=== PATIENT | female | born 1955 | race Caucasian/White ===

== ENCOUNTER 2025-07-09 06:20 | Day surgery (SDC) | payer MEDICARE, SELFPAY ==
[2025-07-09] VITALS (19 sets, daily range): BP systolic 118–190; BP diastolic 59–91; PULSE 53–73; RESP 11–19; TEMP 36.2–36.6; O2SAT 94–98; BMI 34.6
--- NOTE | 2025-07-09 06:48 | W.ANESPRE ---
General Info Date of Service Date Performed: 07/09/25 Height: 5 ft 2 in Weight: 85.9 kg Body Mass Index (BMI): 34.6 Surgical Procedure: Operation Date: 07/09/25 07:40 Proposed Procedure Side Surgeon p Cystoscopy/Laser/Retrograde/Ureteroscopy Rasheed Hernandez MD Meds Allergies and Home Medications Allergies Allergy/AdvReac Type Severity Reaction Status Date / Time No Known Allergies Allergy Verified 07/09/25 06:45 Home Medication ?Medication ?Instructions ?Recorded ascorbic acid (vitamin C) 1,000 mg See Rx Instructions PO .COMPLEX 06/29/22 capsule cholecalciferol (vitamin D3) 25 25 mcg PO DAILY 06/29/22 mcg (1,000 unit) capsule cyanocobalamin (vitamin B-12) 50 50 mcg PO DAILY 06/29/22 mcg lozenges fluticasone propionate 50 1 spray intranasal DAILY PRN 06/29/22 mcg/actuation nasal spray,suspension loratadine 10 mg tablet (Allergy 10 mg PO DAILY PRN allergic 06/29/22 Relief (loratadine)) symptoms rosuvastatin 10 mg tablet (Crestor) 10 mg PO DAILY 06/29/22 solifenacin 10 mg tablet (Vesicare) 10 mg PO DAILY 06/29/22 albuterol 90 mcg/actuation aerosol mcg inhalation 07/06/25 inhaler hydromorphone 2 mg tablet 2 mg PO Q4H 07/06/25 levalbuterol tartrate 45 2 inh inhalation Q6H 07/06/25 mcg/actuation aerosol inhaler losartan 25 mg tablet 12.5 mg PO DAILY 07/06/25 meloxicam 15 mg tablet 15 mg PO DAILY 07/06/25 mirabegron 25 mg tablet,extended 25 mg PO DAILY 07/06/25 release 24 hr (Myrbetriq) ondansetron 4 mg disintegrating 4 mg PO Q8H 07/06/25 tablet tamsulosin 0.4 mg capsule 0.4 mg PO DAILY 07/06/25 Current Visit Medications: Current Medications Generic Name Dose Route Start Last Admin Trade Name Freq PRN Reason Stop Dose Admin Ringer's Solution 1,000 mls @ 80 mls/hr 07/09/25 06:23 IV 08/08/25 06:22 INFUSION EUGENE Levofloxacin 500 mg 07/09/25 06:24 Levofloxacin 500 Mg Tab PO 08/08/25 06:23 PREOP EUGENE Sodium Chloride 0 ml 07/09/25 06:23 Normal Saline Flush 10 Ml Syr IVP 08/08/25 06:22 PRN PRN Sodium Chloride 0 ml 07/09/25 08:30 Normal Saline Flush 10 Ml Syr IVP 08/08/25 08:29 BID EUGENE Sodium Chloride 0 ml 07/09/25 06:23 Normal Saline 10 Ml Vial IJ 08/08/25 06:22 DIRECTED PRN PFSH Active Problems Active Problems: Problem Status Onset Code Overactive bladder Acute N32.81 Left ureteral stone Acute N20.1 Hypertension Chronic I10 Pain, foot Acute M79.673 Plantar fasciitis of right foot Acute M72.2 Hypercholesterolemia Acute E78.00 Medical History Medical History (Updated 07/06/25 @ 15:44 by Rasheed Hernandez MD) Cervical lymphadenopathy Ingrown nail Urinary urgency Surgical History Surgical History (Updated 06/29/22 @ 08:25 by Alicia Michelle RN) History of bunionectomy of right great toe History of tubal ligation History of appendectomy Tobacco Smoking/Tobacco Use Status: Former Tobacco Use Vital Signs and Lab Results Vital Signs Most Recent Vital Signs in EMR: Temp Pulse Resp BP Pulse Ox 36.2 C L 73 16 190/91 H 96 07/09/25 06:50 07/09/25 06:50 07/09/25 06:50 07/09/25 06:50 07/09/25 06:50 Anesthesia Assessment and Plan Anesthesia History Personal History: No History of Anesthesia Complications Family History: No Family History of Anesthesia Complications Exercise Tolerance Exercise Tolerance: Metabolic Equivalents>4 Cardiac & Pulmonary Exam Cardiac Exam: Normal S1/S2 Heart Sounds Pulmonary Exam: Clear Bilateral Breath Sounds Implantable Cardiac Device Does patient have a Pacemaker or an ICD?: No Airway Exam Known Difficult Airway: No Mallampati Class: 4 Mouth Opening: Normal (> 3cm) Thyromental Distance: Greater than 3 cm Neck Range of Motion: Full ROM and Limited ROM Neck Circumference: Normal Teeth Condition: Removable Dentures/Plates Upper, Removable Dentures/Plates Lower and Edentulous ASA Classification ASA Score: ASA 2 Emergency Case?: No NPO Status NPO Status: NPO Clears >2 hours, Solids >8 hours Anesthesia Plan Resuscitation Status: Full Code Anesthesia Technique: General Anesthesia Airway Planned: Endotracheal Tube Monitors Used: Standard Monitors Preoperative Comments:: 70 yo for cysto. Sig PMHx: HTN (losartan, did not take today. Usually 140/80 at home), RAD (levalbut - last dose yesterday.), former smoker. GERD multiple times a week, HOB elevated at home.
--- NOTE | 2025-07-09 07:05 | W.PM.HP.N ---
Date of service: 07/09/25 Time of Service: 07:21 Assessment and Plan Assessment and plan (1) Left ureteral stone: Status: Acute Assessment and plan: Her stone has not progressed or passed, so we will move forward with a cystoscopy, left retrograde pyelogram, left ureteroscopy with possible holmium laser lithotripsy of her stone. History of Present Illness History of Present Illness Chief Complaint: Left ureteral stone Narrative: This is a 70-year-old woman who recently presented to an outlying emergency department with a left upper abdominal pain. She was having nausea at the time but no vomiting. As part of her evaluation, she was found to have microscopic hematuria. CT scan was done and an obstructing left proximal ureteral stone was identified. She was discharged with oral analgesics and Flomax. She has not passed her stone in the past 4 to 5 days. She is not having fevers or chills. Her pain has been controlled with NSAIDs. She continues to have nausea but no vomiting. This is her first stone episode. She has no history of gout or hyperparathyroidism. She recalls that one of her brothers had kidney stones. She has had no adverse reactions to anesthetic in the past. She has no issues with excessive bleeding or delayed wound healing. She quit smoking back up to 2006. Review of Systems Narrative: No fevers or chills No vision change or dysphasia No diabetes or thyroid dysfunction Asthma - uses inhaler prn. No hemoptysis No chest pain or palpitations No vomiting, hepatitis, ulcers, jaundice, diarrhea or constipation No seizures, strokes or peripheral neuropathy No bleeding disorders or anemia No gout PFSH All Active Problems Overactive bladder (Acute) Left ureteral stone (Acute) Hypertension (Chronic) Pain, foot (Acute) Plantar fasciitis of right foot (Acute) Hypercholesterolemia (Acute) Medical History Cervical lymphadenopathy Ingrown nail Urinary urgency Surgical History History of bunionectomy of right great toe History of tubal ligation History of appendectomy Social History (Updated 06/29/22 @ 08:23 by Alicia Michelle RN) Smoking/Tobacco Use Status: Former Tobacco Use Quit Date: 07/12/09 Smoking risk assessment performed?: Yes Alcohol Intake: never Substance use type: does not use Household members: spouse Number of Children: 3 current occupation: retired Do you feel safe at home: Yes Do you feel safe in your relationship?: Yes Meds Allergies and Home Medications Allergies Allergy/AdvReac Type Severity Reaction Status Date / Time No Known Allergies Allergy Verified 07/09/25 06:45 Home Medications ?Medication ?Instructions ?Recorded ?Confirmed ?Type ascorbic acid (vitamin C) 1,000 mg See Rx Instructions PO .COMPLEX 06/29/22 07/09/25 History capsule cholecalciferol (vitamin D3) 25 25 mcg PO DAILY 06/29/22 07/09/25 History mcg (1,000 unit) capsule cyanocobalamin (vitamin B-12) 50 50 mcg PO DAILY 06/29/22 07/09/25 History mcg lozenges fluticasone propionate 50 1 spray intranasal DAILY PRN 06/29/22 07/09/25 History mcg/actuation nasal spray,suspension loratadine 10 mg tablet (Allergy 10 mg PO DAILY PRN allergic 06/29/22 07/09/25 History Relief (loratadine)) symptoms rosuvastatin 10 mg tablet (Crestor) 10 mg PO DAILY 06/29/22 07/09/25 History solifenacin 10 mg tablet (Vesicare) 10 mg PO DAILY 06/29/22 07/09/25 History albuterol 90 mcg/actuation aerosol mcg inhalation 07/06/25 07/06/25 History inhaler hydromorphone 2 mg tablet 2 mg PO Q4H 07/06/25 07/09/25 History levalbuterol tartrate 45 2 inh inhalation Q6H 07/06/25 07/06/25 History mcg/actuation aerosol inhaler losartan 25 mg tablet 12.5 mg PO DAILY 07/06/25 07/09/25 History meloxicam 15 mg tablet 15 mg PO DAILY 07/06/25 07/09/25 History mirabegron 25 mg tablet,extended 25 mg PO DAILY 07/06/25 07/09/25 History release 24 hr (Myrbetriq) ondansetron 4 mg disintegrating 4 mg PO Q8H 07/06/25 07/09/25 History tablet tamsulosin 0.4 mg capsule 0.4 mg PO DAILY 07/06/25 07/09/25 History Exam Const General: cooperative Neck Neck: supple Resp Effort & Inspection: normal respiratory effort Auscultation: clear to auscultation bilaterally Cardio Rate: regular rate Rhythm: regular rhythm GI Palpation: soft and no masses Neuro General: patient alert, patient awake and patient oriented x3 Results Last Vital Signs Temp 36.2 C L 07/09/25 06:50 Pulse 73 07/09/25 06:50 Resp 16 07/09/25 06:50 BP 190/91 H 07/09/25 06:50 Pulse Ox 96 07/09/25 06:50 VTE Prohylaxis Risk Level: Low Risk Contraindications: None Prophylaxis: Mechanical Time Spent Time spent with Patient: <40 minutes Time was spent: other
[2025-07-09] MEDS: Lactated Ringers 1,000 ML 80 ML IV (07:07)
[2025-07-09] MEDS: levoFLOXacin 500 MG TAB PO (07:12)
[2025-07-09] MEDS: Lidocaine 2% Jelly 6 ML SYR (08:06)
[2025-07-09] MEDS: Omnipaque 300 MG/ML 50 ML BTL (08:15)
--- NOTE | 2025-07-09 08:22 | W.PM.DSUDISC ---
Date of service: 07/09/25 Discharge Plan Disposition Patient Disposition: Home Condition: Stable Discharge Details Reason For Visit: ureteral stone Attending Provider: Rasheed Hernandez Primary Care Provider: Ross Blackmon Home Meds and New Rx's Prescriptions: No Action meloxicam 15 mg tablet 15 mg PO DAILY hydromorphone 2 mg tablet 2 mg PO Q4H tamsulosin 0.4 mg capsule 0.4 mg PO DAILY losartan 25 mg tablet 12.5 mg PO DAILY albuterol 90 mcg/actuation aerosol inhalation ondansetron 4 mg tablet,disintegrating 4 mg PO Q8H levalbuterol tartrate 45 mcg/actuation HFA aerosol inhaler 2 inh inhalation Q6H mirabegron [Myrbetriq] 25 mg tablet extended release 24 hr 25 mg PO DAILY solifenacin [Vesicare] 10 mg tablet 10 mg PO DAILY rosuvastatin [Crestor] 10 mg tablet 10 mg PO DAILY fluticasone propionate 50 mcg/actuation spray,suspension 1 spray intranasal DAILY PRN Rx Instructions: administer into each nostril loratadine [Allergy Relief (loratadine)] 10 mg tablet 10 mg PO DAILY PRN (Reason: allergic symptoms) ascorbic acid (vitamin C) 1,000 mg capsule See Rx Instructions PO .COMPLEX Rx Instructions: orally; cholecalciferol (vitamin D3) 25 mcg (1,000 unit) capsule 25 mcg PO DAILY cyanocobalamin (vitamin B-12) 50 mcg lozenge 50 mcg PO DAILY Discharge Instructions Additional Instructions: There is no need to strain your urine I did place a ureteral stent, so we will need to arrange for a repeat cystoscopy and we will inject Botox into your bladder at the same time. My office will contact you to make these arrangements (hopefully on a less icy day compared to today). The next procedure can be done as early as a week from now. While the stent is in place, you may see some blood in the urine and have discomfort when you urinate. Stand Alone Forms: Portal Information Activity:: Activity as Tolerated Shower/Bathe:: 24 hours Diet:: As Tolerated Discharge Orders Discharge Orders: Discharge Order (Routine); Ordered 07/09/25 Ordered By: Rasheed Hernandez DS: Diagnosis Discharge Diagnosis (1) Left ureteral stone: Status: Acute
--- NOTE | 2025-07-09 08:27 | ROE_ITS ---
Operative Note Operative Note PRE-OP DIAGNOSIS: Left ureteral stone POST-OP DIAGNOSIS: same PROCEDURE: cystoscopy, left retrograde pyelogram, left semi-rigid and flexible ureteroscopy, insert left ureteral stent SURGEON: Rasheed Hernandez ANESTHESIA TYPE: Local By Surgeon and General LMA/ETT Refer to Anesthesia Record ESTIMATED BLOOD LOSS: 5 PATHOLOGY: none sent COMPLICATIONS: None Patient was transported to: PACU Patient's condition: stable Implants: 4.8 Finnish by 22 to 30 cm left ureteral stent Indications: This is a 70-year-old woman who initially developed some left upper quadrant abdominal pain. The pain was associated with nausea but not vomiting. She was seen in an outlying emergency department and found to have a left proximal ureteral stone. She was treated conservatively but her symptoms persisted. She presents now for stone manipulation. Findings: no stone visible on semirigid or flexible ureteroscopy Procedure Description: The patient was given antibiotics and brought to the operating room on 07/09/2025. After successful induction of general anesthesia, she was placed in the dorsal lithotomy position. Her genitalia was prepped with Betadine and was draped. 2% Xylocaine jelly was then instilled into the urethra. A 22 Finnish rigid cystoscope was passed through the urethra into the bladder. The bladder was inspected with a 30 degree lens. Both ureteral orifices appeared normal with no blood coming from either side. The remainder of the bladder showed no papillary or nodular lesions. No stone was seen within the bladder. Left ureteral orifice was then cannulated with a 5 Finnish access catheter. A retrograde pyelogram was obtained by injecting Omnipaque through the access catheter under fluoroscopic guidance. I did not see any filling defects along the ureter and the collecting system did not appear dilated. I then passed a guidewire through the lumen of the access catheter and advanced the wire until the proximal end was curled in the upper pole calyx. I removed the access catheter. I then passed the semirigid ureteroscope through the urethra and engaged the scope into the left ureteral orifice. I was able to advance the scope all the way up to the proximal ureter and no stones were seen. The ureter was inspected as I withdrew the scope and again, no stones were seen. We then decided to pass a flexible ureteroscope, so we passed the dual-lumen catheter over the indwelling wire. We positioned a second wire and chose one of the wires as a working wire and the other is a safety wire. We passed a ureteral access sheath over the working wire leaving the safety wire in place. A flexible ureteroscope was then advanced through the lumen of the access sheath in the proximal ureter and calyces were inspected. No stones were seen in the upper or lower pole calyces. I was not able to enter a midpole calyx due to narrowing of the infundibulum. The ureteroscope and access sheath were withdrawn and again all stones were seen along the length of the ureter. We decided to pass a ureteral stent. We chose a 4.8 Finnish stent and passed it over the safety wire. We positioned the proximal end of the stent in the renal pelvis and the distal end in the bladder. The positioning of the stent was confirmed fluoroscopically. The patient tolerated this procedure well with no complications. She was taken to the recovery room in stable condition. Date of Procedure: 07/09/25
--- NOTE | 2025-07-09 08:28 | DI.RAD_ITS ---
Exam(s) XR RETROGRADE IN OR EXAM: XR RETROGRADE IN OR CLINICAL HISTORY: Left ureteral stone. TECHNIQUE: Fluoroscopy was provided for the referring physician for guidance with performing retrograde procedure. COMPARISON: CT CT ABD/PELVIS W/ CONTR NO PO from 06/28/2025 FINDINGS: Please see procedure note for details. Fluoro time: 40.5 seconds RADIATION DOSE DELIVERED: Ka,r=10.5 mGy
--- NOTE | 2025-07-09 08:50 | W.ANESPOSTOP ---
Postoperative Evaluation Date, Time and Location Date Performed: 07/09/25 Time Performed: 08:50 Patient Location: PACU Vital Signs Most Recent Imported Vital Signs: Most Recent Vital Signs Temp Pulse Resp BP Pulse Ox 36.2 C L 60 19 153/69 H 94 07/09/25 06:50 07/09/25 08:41 07/09/25 08:41 07/09/25 08:41 07/09/25 08:41 Pain Score Most Recent Pain Score: Most Recent Pain Score Pain Level 0 07/09/25 06:50 Assessment Mental Status: Awake (Alert & Oriented to Patient Baseline) Airway and Respiratory Function: Patent airway with normal (patient baseline) respiratory exam Cardiovascular Function: Hemodynamically Stable Hydration Status: Adequately Hydrated Nausea & Vomiting: No Nausea or Vomiting Pain: Pain is tolerable per patient Peripheral Nerve Block: Patient did not receive a nerve block
[2025-07-09] MEDS: Phenazopyridine 200 MG TAB PO (09:31)
== END 2025-07-09 10:11 | disposition home or self-care (01) ==
PROVIDERS: PCP Internal Medicine; Visit Provider Urology
PROC: 0TJ98ZZ Inspection of Ureter, Via Natural or Artificial Opening Endoscopic (ICD-10-PCS; CPT 52351; principal; 2025-07-09 07:30)
DX: N20.1 Calculus of ureter (principal); I10 Essential (primary) hypertension; E78.00 Pure hypercholesterolemia, unspecified
CPT/HCPCS: 52351; 52332; 74420; J0131; J1100; J1885; J2405; J2704; J3475; Q9967